=== PATIENT | female | born 1985 | race Caucasian/White ===

== ENCOUNTER 2016-03-24 12:40 | Emergency (ER) | payer BC ==
[~2016-03-24] VITALS: Ht 170.2 cm; Wt 55.3 kg
[2016-03-24 13:05] VITALS: BP 110/75
[2016-03-24] MEDS ORDERED: CORTISPORIN EAR10 ML RIGHT EAR (13:05)
--- NOTE | 2016-03-24 13:11 | Emergency Room Report ---
History of Present Illness General Chief Complaint: Pain Source: Patient Present Illness HPI The patient is a 30-year-old female presenting with right ear pain which began 3 days prior. The patient was seen at an urgent care yesterday and prescribed amoxicillin which has not helped. The patient describes the pain as a 7/10 dull ache it does not radiate. Pain is worse with movement of the jaw. The patient does admit to frequently cleaning out the ears. The patient denies fever , chills, headache, nausea, vomiting, discharge from the ear. Patient denies any sick contacts or recent travel Allergies: Coded Allergies: No Known Allergies (Unverified , 03/24/16) Patient History Past Medical History: see triage record Pertinent Family History: none Last Menstrual Period: 03/13/16 Reviewed Nursing Documentation: PMH: Agreed, PSxH: Agreed Nursing Documentation-PMH Past Medical History: No Stated History Review of Systems All Other Systems: negative except mentioned in HPI Physical Exam Vital Signs Date Time Temp Pulse Resp B/P Pulse Ox O2 Delivery O2 Flow Rate FiO2 03/24/16 12:51 98.2 89 20 110/75 95 Room Air Sp02 EP Interpretation: reviewed, normal General Appearance: no apparent distress, alert, GCS 15, non-toxic Head: normocephalic, atraumatic Eyes: bilateral eye PERRL, bilateral eye normal inspection ENT: hearing grossly normal, no angioedema, normal voice, uvula midline, moist mucus membranes, other - R ear: EAC is erythematous with white DC. TM is intact. No bulging. No erythema Neck: full range of motion, supple/symm/no masses Musculoskeletal: back normal, gait/station normal, normal range of motion, non- tender, calf tenderness Neurologic: alert, oriented x3, responsive, motor strength/tone normal, sensory intact, speech normal Psychiatric: judgement/insight normal, memory normal, mood/affect normal, no suicidal/homicidal ideation Skin: normal color, no rash, warm/dry, well hydrated Lymphatic: adenopathy Medical Decision Making PA Attestation Dr. Montero is my supervising physician. Patient management was discussed with my supervising physician Diagnostic Impression: Primary Impression: Otitis externa of right ear ER Course The patient is a 30-year-old female presenting with right ear pain which began 3 days prior. Differential diagnosis include but not limited to otitis externa, otitis media, mastoiditis, sinusitis, pharyngitis PE: Vitals WNL. NAD R ear: EAC is erythematous with white DC.Tender to palpation over the tragus. TM is intact. No bulging. No erythema. There is right-sided posterior cervical chain lymphadenopathy The patient will be discharged with a prescription for Cortisporin and is given ER precautions. Last Vital Signs Date Time Temp Pulse Resp B/P Pulse Ox O2 Delivery O2 Flow Rate FiO2 03/24/16 13:05 98.2 89 20 110/75 95 Room Air Status: improved Disposition: HOME, SELF-CARE Condition: Improved Scripts Neomycin/Polymyxin B Sulf/Hc* (CORTISPORIN EAR SOLUTION*) 10 Ml Solution 4 DROP RIGHT EAR QID, #10 ML 0 Refills Prov: TOBIAS THOMAS 03/24/16 Patient Instructions: Otitis Externa Additional Instructions: I discussed my findings with the patient. All questions and concerns have been answered. Treatment and medication compliance have been addressed. I advised the patient that they need to follow up with PMD in 3-5 days. Return to ED if symptoms worsen, new symptoms arise, or if needed for any reason. Patient verbalized understanding of discharge instructions. TOBIAS THOMAS Mar 24, 2016 13:11
== END 2016-03-24 13:15 | disposition home or self-care (01) ==
LOC: EMR 13:00
DX: H66.91 Otitis media, unspecified, right ear (principal)
CPT/HCPCS: 99282